=== PATIENT | female | born 1945 | race African-American/Black ===

== ENCOUNTER 2016-04-28 21:52 | Emergency (ER) | payer MEDICARE, MEDICAID ==
--- NOTE | 2016-04-28 23:35 | ER Document Report ---
ED Medical Screen (RME) - General Stated Complaint: BLOOD IN STOOL Time seen by provider: 23:31 Mode of Arrival: Ambulatory Information source: Patient Notes: 70-year-old female presents to ED for bodyaches cold and blood in her stool around noon today. Complains of abdominal pain across the lower abdomen. Pulse 101 blood pressure 144/77. Lungs clear abdomen soft, bowel sounds active. States she's been having a cough and cold so her niece brought her brought some Mucinex which upset her stomach. Denies nausea or vomiting today. Denies any gastrointestinal history except for a umbilical hernia repair. I have greeted and performed a rapid initial assessment of this patient. A comprehensive ED assessment and evaluation of the patient, analysis of test results and completion of medical decision making process will be conducted by an additional ED providers. - Related Data Allergies/Adverse Reactions: No Known Allergies Allergy (Unverified 02/27/13 12:39) Past Medical History - Past Medical History Cardiac Medical History: Reports: Hx Hypertension - Immunizations Hx Diphtheria, Pertussis, Tetanus Vaccination: Yes Physical Exam - Vital signs Vitals: Temp Pulse Resp BP Pulse Ox 98.2 F 105 H 16 144/77 H 97 04/28/16 22:38 04/28/16 22:38 04/28/16 22:38 04/28/16 22:38 04/28/16 22:38 Course - Vital Signs Vital signs: Temp Pulse Resp BP Pulse Ox 98.2 F 105 H 16 144/77 H 97 04/28/16 22:38 04/28/16 22:38 04/28/16 22:38 04/28/16 22:38 04/28/16 22:38
[2016-04-28] MEDS ORDERED: FAMOTIDINE 20 MG TABLET PO ONE (23:36)
[2016-04-29 00:41] LABS: ABSOLUTE LYMPHOCYTES (AUTO) 1.6 10^3/uL (0.5-4.7); ABSOLUTE MONOCYTES (AUTO) 0.5 10^3/uL (0.1-1.4); ABSOLUTE NEUT (AUTO) 3.1 10^3/uL (1.7-8.2); APPEARANCE,URINE CLOUDY; BASOPHILS % (AUTO) 0.3 % (0-2); BILIRUBIN,URINE NEGATIVE (NEGATIVE); EOSINOPHILS % (AUTO) 0.2 % (0-6); GLUCOSE, URINE NEGATIVE (NEGATIVE); HEMATOCRIT 39.3 % (36.0-47.0); HEMOGLOBIN 13.4 g/dL (12.0-15.5); HGB HCT DIFFERENCE 0.9; KETONES,URINE NEGATIVE (NEGATIVE); LEUKOCYTE ESTERASE,URINE LARGE (NEGATIVE); LYMPHOCYTES % (AUTO) 30.6 % (13-45); MEAN CORPUSCULAR HEMOGLOBIN 28.8 pg (27.0-33.4); MEAN CORPUSCULAR HGB CONC 34.2 g/dL (32.0-36.0); MEAN CORPUSCULAR VOLUME 84 fl (80-97); MONOCYTES % (AUTO) 10.2 % (3-13); NITRITE,URINE NEGATIVE (NEGATIVE); PROTEIN,URINE NEGATIVE (NEGATIVE); RED BLOOD COUNT 4.66 10^6/uL (3.72-5.28); RED CELL DISTRIBUTION WIDTH 13.8 % (11.5-14.0); SEGMENTED NEUTROPHILS % (AUTO) 58.7 % (42-78); URINE SPECIFIC GRAVITY 1.015; UROBILINOGEN,URINE NEGATIVE mg/dL (<2.0); WHITE BLOOD COUNT 5.2 10^3/uL (4.0-10.5)
[2016-04-29 00:43] LABS: ALANINE AMINOTRANSFERASE 22 U/L (9-52); ALBUMIN 4.3 g/dL (3.5-5.0); ALKALINE PHOSPHATASE 79 U/L (38-126); ANION GAP 14 (5-19); ASPARTATE AMINO TRANSFERASE 34 U/L (14-36); BILIRUBIN,TOTAL 0.6 mg/dL (0.2-1.3); BLOOD UREA NITROGEN 12 mg/dL (7-20); CALCIUM 9.5 mg/dL (8.4-10.2); CARBON DIOXIDE 21 mmol/L (22-30); CHLORIDE 104 mmol/L (98-107); CREATININE RESULT 0.96 mg/dL (0.52-1.25); GLUCOSE 156 mg/dL (75-110); LIPASE 100.8 U/L (23-300); POTASSIUM 4.7 mmol/L (3.6-5.0); SODIUM 139.2 mmol/L (137-145)
--- NOTE | 2016-04-29 06:11 | ER Document Report ---
ED General - General Mode of Arrival: Ambulatory Information source: Patient TRAVEL OUTSIDE OF THE [place] IN LAST 30 DAYS: No - HPI Patient complains to provider of: Blood in Stool Onset: Yesterday Onset/Duration: Sudden, Persistent Similar symptoms previously: Yes Recently seen / treated by doctor: No <ANN GUILLEN - Last Filed: 04/29/16 06:33> <SARA MERCEDES - Last Filed: 04/29/16 07:05> - General Chief Complaint: Bloody Stools Stated Complaint: BLOOD IN STOOL Notes: Patient is a 70-year-old female presenting to the emergency department concerned of blood in her stool 3 times yesterday. 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 Patient states she has had this in the past, but she does not know what it was because it resolved on its own. Patient admits to abdominal pain and dizziness. Patient states that she has not been able to give a stool sample because she took some Mucinex that upset her stomach last night and "cleared her out." (ANN GUILLEN) - Related Data Allergies/Adverse Reactions: No Known Allergies Allergy (Verified 04/28/16 23:31) Past Medical History - General Information source: Patient - Social History Smoking Status: Current Every Day Smoker Chew tobacco use (# tins/day): No Frequency of alcohol use: None Drug Abuse: None Family History: Reviewed & Not Pertinent Patient has suicidal ideation: No Patient has homicidal ideation: No - Past Medical History Cardiac Medical History: Reports: Hx Hypertension Renal/ Medical History: Denies: Hx Peritoneal Dialysis - Immunizations Hx Diphtheria, Pertussis, Tetanus Vaccination: Yes <ANN GUILLEN - Last Filed: 04/29/16 06:33> Review of Systems - Review of Systems Constitutional: No symptoms reported EENT: No symptoms reported Cardiovascular: See HPI, Dizziness Respiratory: No symptoms reported Gastrointestinal: See HPI, Abdominal pain, Blood streaked bowels, Rectal bleeding Genitourinary: No symptoms reported Female Genitourinary: No symptoms reported Musculoskeletal: No symptoms reported Skin: No symptoms reported Hematologic/Lymphatic: No symptoms reported Neurological/Psychological: No symptoms reported -: Yes All other systems reviewed and negative <ANN GUILLEN - Last Filed: 04/29/16 06:33> Physical Exam - General General appearance: Appears well, Alert In distress: None - HEENT Head: Normocephalic, Atraumatic Eyes: Normal Pupils: PERRL - Respiratory Respiratory status: No respiratory distress Chest status: Nontender Breath sounds: Rhonchi - with cough Chest palpation: Normal - Cardiovascular Rhythm: Regular Heart sounds: Normal auscultation Murmur: No - Abdominal Inspection: Obese - Soft Distension: No distension Bowel sounds: Normal Tenderness: Nontender Organomegaly: No organomegaly - Rectal Tenderness: No Stool: See lab result - light brown in color Hemorrhoids: External - No active bleeding - Back Back: Normal, Nontender - Extremities General upper extremity: Normal inspection, Nontender, Normal color, Normal ROM , Normal temperature General lower extremity: Normal inspection, Nontender, Normal color, Normal ROM , Normal temperature, Normal weight bearing - Neurological Neuro grossly intact: Yes Cognition: Normal Kinta Coma Scale Eye Opening: Spontaneous [place] Coma Scale Verbal: Oriented [place] Coma Scale Motor: Obeys Commands Kinta Coma Scale Total: 15 Speech: Normal - Psychological Associated symptoms: Normal affect, Normal mood - Skin Skin Temperature: Warm Skin Moisture: Dry Skin Color: Normal <ANN GUILLEN - Last Filed: 04/29/16 06:33> Course - Laboratory Result Diagrams: 04/29/16 00:01 04/29/16 00:01 <ANN GUILLEN - Last Filed: 04/29/16 06:33> - Laboratory Result Diagrams: 04/29/16 00:01 04/29/16 00:01 <SARA MERCEDES - Last Filed: 04/29/16 07:05> - Re-evaluation Re-evalutation: 04/29/16 07:05 The stool is heme-negative. (SARA MERCEDES) - Vital Signs Vital signs: Temp Pulse Resp BP Pulse Ox 98.2 F 98 16 149/79 H 95 04/29/16 03:55 04/29/16 03:55 04/29/16 03:55 04/29/16 03:55 04/29/16 03:55 (ANN GUILLEN) (SARA MERCEDES) - Laboratory Laboratory results interpreted by me: 04/29/16 04/29/16 00:01 00:01 Carbon Dioxide 21 L Est GFR (Non-Af Amer) 58 L Glucose 156 H Urine Blood MODERATE H Ur Leukocyte Esterase LARGE H (ANN GUILLEN) (SARA MERCEDES) Discharge <ANN GUILLEN - Last Filed: 04/29/16 06:33> <SARA MERCEDES - Last Filed: 04/29/16 07:05> - Discharge Clinical Impression: External hemorrhoids High blood pressure Qualifiers: Hypertension type: essential hypertension Qualified Code(s): I10 - Essential ( primary) hypertension Condition: Stable Disposition: HOME, SELF-CARE Additional Instructions: There was no blood in your stool on chemical exam of the stool. You do have some additional hemorrhoids which may have been the source of the blood use all. Your blood pressure slightly elevated. Your are advised to follow-up with a local medical doctor for regular health care and monitoring. You should start treating your elevated blood pressure. RETURN TO THE EMERGENCY ROOM IF ANY NEW OR WORSENING SYMPTOMS. Scribe Attestation: 04/29/16 07:05 I personally performed the services described in the documentation, reviewed and edited the documentation which was dictated to the scribe in my presence, and it accurately records my words and actions. (SARA MERCEDES) Scribe Documentation - Scribe Written by Scribnakul:: Ann Guillen 04/29/2016 0610 acting as scribe for :: Matt <ANN GUILLEN - Last Filed: 04/29/16 06:33>
[2016-04-29 07:18] VITALS: BP 129/63
== END 2016-04-29 07:18 | disposition home or self-care (01) ==
LOC: ER 21:52
DX: K64.4 Residual hemorrhoidal skin tags (principal); I10 Essential (primary) hypertension; R19.5 Other fecal abnormalities; R10.9 Unspecified abdominal pain; R42 Dizziness and giddiness
CPT/HCPCS: 99283; 36415; 83690; 85025; 82272; 80053; 81001; A9270

== ENCOUNTER 2019-08-29 13:10 | Inpatient (IN) | payer MEDICAID, MEDICARE ==
--- NOTE | 2019-08-29 13:31 | ER Document Report ---
ED Medical Screen (RME) - General Chief Complaint: Numbness of Face Stated Complaint: FACIAL NUMBNESS Time Seen by Provider: 08/29/19 13:25 Mode of Arrival: Ambulatory Information source: Patient Notes: HPI; 73-year-old female presents to the emergency room complaining of a sore throat with right-sided facial numbness for the past 2 days. States she feels off balance when she walks. No head trauma or head injury. States "I feel like he cannot swallow on the right side of my throat" PE: Alert and oriented x3. Mild distress noted. Decreased sensation to painful stimuli on the right. 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 Mild right-sided facial droop is noted. Mild right tongue deviation to the right. Able to do full assessment in triage. I have greeted and performed a rapid initial assessment of this patient. A comprehensive ED assessment and evaluation of the patient, analysis of test results and completion of the medical decision making process will be conducted by additional ED providers. I have specifically instructed the patient or family members with the patient to immediately return to any nursing staff should anything change in the patient's condition or with their chief complaint. TRAVEL OUTSIDE OF THE [place] IN LAST 30 DAYS: No - Related Data Allergies/Adverse Reactions: No Known Allergies Allergy (Verified 08/29/19 13:25) Past Medical History - Past Medical History Cardiac Medical History: Reports: Hx Hypertension Renal/ Medical History: Denies: Hx Peritoneal Dialysis - Immunizations Hx Diphtheria, Pertussis, Tetanus Vaccination: Yes Physical Exam - Vital signs Vitals: Temp Pulse Resp BP Pulse Ox 98.9 F 100 16 172/89 H 100 08/29/19 13:17 08/29/19 13:17 08/29/19 13:17 08/29/19 13:17 08/29/19 13:17 Course - Vital Signs Vital signs: Temp Pulse Resp BP Pulse Ox 98.9 F 100 16 172/89 H 100 08/29/19 13:17 08/29/19 13:17 08/29/19 13:17 08/29/19 13:17 08/29/19 13:17
[2019-08-29 14:24] LABS: ABSOLUTE EOSINOPHILS # (AUTO) 0.2 10^3/uL (0.0-0.6); ABSOLUTE LYMPHOCYTES (AUTO) 2.9 10^3/uL (0.5-4.7); ABSOLUTE MONOCYTES (AUTO) 0.5 10^3/uL (0.1-1.4); ABSOLUTE NEUT (AUTO) 2.2 10^3/uL (1.7-8.2); BASOPHILS % (AUTO) 0.8 % (0-2); EOSINOPHILS % (AUTO) 3.3 % (0-6); HEMATOCRIT 36.6 % (36.0-47.0); HEMOGLOBIN 12.6 g/dL (12.0-15.5); MEAN CORPUSCULAR HEMOGLOBIN 30.1 pg (27.0-33.4); MEAN CORPUSCULAR HGB CONC 34.3 g/dL (32.0-36.0); MEAN CORPUSCULAR VOLUME 88 fl (80-97); PLATELET COUNT 217 10^3/uL (150-450); RED BLOOD COUNT 4.17 10^6/uL (3.72-5.28); SEGMENTED NEUTROPHILS % (AUTO) 37.9 % (42-78); TOTAL CELLS COUNTED % (AUTO) 100 %; WHITE BLOOD COUNT 5.8 10^3/uL (4.0-10.5)
[2019-08-29 14:26] LABS: INTERNATIONAL RATION (INR) 1.06; PROTHROMBIN TIME 13.8 SEC (11.4-15.4)
--- NOTE | 2019-08-29 14:27 | RADIOLOGY REPORT (SQ) ---
EXAM DESCRIPTION: CT HEAD WITHOUT IMAGES COMPLETED DATE/TIME: 08/29/2019 2:09 pm REASON FOR STUDY: Paresthesia COMPARISON: 02/27/2013 TECHNIQUE: Axial images acquired through the brain without intravenous contrast. Images reviewed wi th bone, brain and subdural windows. Additional sagittal and coronal reconstructions were generated. Images stored on PACS. All CT scanners at this facility use dose modulation, iterative reconstruction, and/or weight based d osing when appropriate to reduce radiation dose to as low as reasonably achievable (ALARA). [facility]: Dose Right [facility]: CareDose [facility]: Dose Right [facility]: Teradose 4D [facility]: Smart [place] [employer] RADIATION DOSE: CT Rad equipment meets quality standard of care and radiation dose reduction techniq ues were employed. CTDIvol: 53.2 mGy. DLP: 937 mGy-cm. mGy. LIMITATIONS: None. FINDINGS: VENTRICLES: Normal size and contour. CEREBRUM: No masses. No hemorrhage. No midline shift. No evidence for acute infarction. Normal gra y/white matter differentiation. No areas of low density in the white matter. Incidental note is made of bilateral basal ganglia calcifications. CEREBELLUM: No masses. No hemorrhage. Wedge-shaped hypoattenuation involving the right cerebellar l obe suggests subacute or chronic ischemic injury. EXTRAAXIAL SPACES: No fluid collections. No masses. ORBITS AND GLOBE: No intra- or extraconal masses. Normal contour of globe without masses. CALVARIUM: No fracture. PARANASAL SINUSES: Trace fluid is seen within the left maxillary and right sphenoid compartment. SOFT TISSUES: No mass or hematoma. OTHER: No other significant finding. IMPRESSION: The posterior fossa is poorly characterized on noncontrast head CT due to beam hardening artifact of the adjacent skullbase. There is a wedge-shaped area of hypoattenuation within the righ t cerebellar hemisphere which likely represents a subacute or chronic ischemic injury. If high clini bobbi suspicion for subacute injury, this may be confirmed with noncontrast enhanced magnetic resonance imaging of the brain. EVIDENCE OF ACUTE STROKE: NO. COMMENT: Quality ID # [id number]: Final reports with documentation of one or more dose reduction techniques (e.g., Automated exposure control, adjustment of the mA and/or kV according to patient size, use of iterative reconstruction technique) TECHNICAL DOCUMENTATION: JOB ID: [id number] 2010 [employer]- All Rights Reserved Reading location - IP/workstation name: [email or web address]
[2019-08-29 14:41] LABS: ALKALINE PHOSPHATASE 82 U/L (38-126); ASPARTATE AMINO TRANSFERASE 27 U/L (14-36); BILIRUBIN,TOTAL 0.6 mg/dL (0.2-1.3); BLOOD UREA NITROGEN 12 mg/dL (7-20); CALCIUM 9.5 mg/dL (8.4-10.2); CARBON DIOXIDE 30 mmol/L (22-30); CHLORIDE 105 mmol/L (98-107); GLUCOSE 95 mg/dL (75-110); POTASSIUM 4.7 mmol/L (3.6-5.0); TOTAL PROTEIN 7.8 g/dL (6.3-8.2)
[2019-08-29 14:48] LABS: ANION GAP 5 (5-19)
--- NOTE | 2019-08-29 15:18 | EKG REPORT ---
SEVERITY:- ABNORMAL ECG - SINUS RHYTHM ABNORMAL T, PROBABLE ISCHEMIA, WIDESPREAD : Confirmed by: Roberto Lynn MD 29-Aug-2019 15:18:03
--- NOTE | 2019-08-29 15:52 | ER Document Report ---
ED Neuro Symptoms/Deficit - General Chief Complaint: Numbness of Face Stated Complaint: FACIAL NUMBNESS Time Seen by Provider: 08/29/19 13:25 Mode of Arrival: Ambulatory Notes: 73-year-old woman presents to the emergency department with a complaint of right facial numbness and imbalance with some difficulty swallowing. Symptoms began last Friday, they continued and have not improved she presents to the emergency department for evaluation. Has a history of diabetes, she is not being treated for hypertension and does not see a physician on a regular basis. TRAVEL OUTSIDE OF THE [place] IN LAST 30 DAYS: No - Related Data Allergies/Adverse Reactions: No Known Allergies Allergy (Verified 08/29/19 13:25) Past Medical History - General Information source: Patient - Social History Smoking Status: Current Every Day Smoker Chew tobacco use (# tins/day): No Frequency of alcohol use: None Drug Abuse: None Family History: Reviewed & Not Pertinent Patient has homicidal ideation: No - Past Medical History Cardiac Medical History: Reports: Hx Hypertension Renal/ Medical History: Denies: Hx Peritoneal Dialysis - Immunizations Hx Diphtheria, Pertussis, Tetanus Vaccination: Yes Review of Systems - Review of Systems Notes: Constitutional: Negative for fever. HENT: + Swallowing difficulty Eyes: Negative for visual changes. Cardiovascular: Negative for chest pain. Respiratory: Negative for shortness of breath. Gastrointestinal: Negative for abdominal pain, vomiting or diarrhea. Genitourinary: Negative for dysuria. Musculoskeletal: Negative for back pain. Skin: Negative for rash. Neurological: See HPI. 10 point ROS negative except as marked above and in HPI. Physical Exam - Vital signs Vitals: Temp Pulse Resp BP Pulse Ox 98.9 F 100 16 172/89 H 100 08/29/19 13:17 08/29/19 13:17 08/29/19 13:17 08/29/19 13:17 08/29/19 13:17 - Notes Notes: PHYSICAL EXAMINATION: Physical Exam: General: Well-nourished well-developed 73-year-old woman in no acute distress HEENT: NC/AT, pupils equal round and reactive to light, MM moist,nares clear, oropharynx clear, airway patent Neck: supple, no adenopathy, no masses. Good range of motion Lungs: clear, no wheezing, no rales no rhonchi CVS: Regular rate and rhythm no murmur gallop or rub Abdomen: Soft, active, nontender, no masses, no hepatosplenomegaly Ext: No edema, clubbing or cyanosis. Neuro: Alert and responsive, + right facial numbness, tongue midline, midline lip of the uvula on oral exam, upper and lower extremity motor function normal, no sensory deficits in the extremities. Cerebellar testing poor [id number] right side, Skin: Intact no open lesions, no rash PSYCH: Normal mood, normal affect. Course - Re-evaluation Re-evalutation: 08/29/19 15:52 Patient with new onset subacute cerebellar infarct and symptoms supportive of the diagnosis of a subacute stroke. Blood pressure is elevated, I discussed the findings with the patient and also explained that she would need to come into the hospital for further evaluation of stroke risk and management of hypertension. Patient is agreeing to that plan. 08/29/19 15:59 Patient is not a candidate for TPA, her symptoms began 1 week ago, NIH scale approximately 3 -4 + facial numbness, + swallowing difficulty, + cerebellar abnormality. - Vital Signs Vital signs: Temp Pulse Resp BP Pulse Ox 98.9 F 100 17 133/120 H 98 08/29/19 13:25 08/29/19 13:17 08/29/19 15:01 08/29/19 15:01 08/29/19 15:01 - Laboratory Result Diagrams: 08/29/19 14:12 08/29/19 14:12 Laboratory results interpreted by me: 08/29/19 14:12 Lymph % (Auto) 49.0 H Seg Neutrophils % 37.9 L - Diagnostic Test Radiology reviewed: Image reviewed, Reports reviewed Radiology results interpreted by or: 08/29/19 16:02 CT head: Abnormality in the posterior fossa wedge-shaped area in the right cerebellum suggestive of a subacute area of injury. Discharge - Discharge Clinical Impression: Cerebellar infarct Hypertension Qualifiers: Hypertension type: unspecified Qualified Code(s): I10 - Essential (primary) hypertension Condition: Good Disposition: ADMITTED INPATIENT Admitting Provider: Onur (Hospitalist) Unit Admitted: [facility]
--- NOTE | 2019-08-29 16:25 | RADIOLOGY REPORT (SQ) ---
EXAM DESCRIPTION: CHEST SINGLE VIEW IMAGES COMPLETED DATE/TIME: 08/29/2019 4:15 pm REASON FOR STUDY: Stroke COMPARISON: 02/27/2013 TECHNIQUE: Single frontal radiographic view of the chest acquired. NUMBER OF VIEWS: One view. LIMITATIONS: None. FINDINGS: LUNGS AND PLEURA: No pneumothorax. No consolidation or pleural effusion. MEDIASTINUM AND HILAR STRUCTURES: Stable. HEART AND VASCULAR STRUCTURES: Stable. BONES: No acute findings. HARDWARE: None in the chest. OTHER: No other significant finding. IMPRESSION: NO ACUTE FINDINGS. TECHNICAL DOCUMENTATION: JOB ID: [id number] [place]-[id number] 2010 [employer]- All Rights Reserved Reading location - IP/workstation name: [email or web address]
[2019-08-29] MEDS ORDERED: METOPROLOL TARTRATE PF/INJ 5 MG/5 ML SDV IV PRN (16:33)
[2019-08-29] MEDS ORDERED: HYDRALAZINE HCL INJ/PF 20 MG/1 ML SDV IV PRN (16:33)
[2019-08-29] MEDS ORDERED: TEMAZEPAM 7.5 MG CAPSULE PO PRN (16:34)
[2019-08-29] MEDS ORDERED: IPRATROPIUM/ALBUTEROL 0.5-2.5 MG/3 ML AMPUL NEB PRN (16:34)
[2019-08-29] MEDS ORDERED: PROMETHAZINE HCL INJ 25 MG/1 ML VIAL IV PRN (16:34)
[2019-08-29] MEDS ORDERED: ACETAMINOPHEN 325 MG TABLET PO PRN (16:34)
[2019-08-29] MEDS ORDERED: OXYCODONE-ACETAMINOPHEN 5-325 MG TABLET PO PRN (16:34)
[2019-08-29] MEDS ORDERED: ONDANSETRON HCL INJ/PF 4 MG/2 ML SDV IV PRN (16:34)
[2019-08-29] MEDS ORDERED: MAGNESIUM HYDROXIDE SUSP 30 ML UDCUP PO PRN (16:34)
[2019-08-29] MEDS ORDERED: ENALAPRIL MALEATE 10 MG TABLET PO SCH (16:45)
[2019-08-29] MEDS: NICOTINE 14 MG/24 HR PATCH.TD24 TD SCH (16:52)
[2019-08-29 16:53] LABS: CHOLESTEROL 252.19 mg/dL (0-200); TRIGLYCERIDES 127 mg/dL (<150)
--- NOTE | 2019-08-29 16:54 | PDOC H&P ---
History of Present Illness History of Present Illness: KHADIJAH WASHINGTON is a 73 year old female with no significant past medical history is sent for tobacco abuse, untreated diabetes and hypertension presenting to ED complaining of sudden onset right facial numbness, mild dysphagia and loss of balance which all started last Friday, patient did not seek any immediate medical treatment as she thought it would go away, however her symptoms are intermittent and has persistent to present time. Patient denies any headache, vision changes, taste changes, chest pain, palpitation, lightheadedness, shortness of breath, nausea, vomiting, weight c hanges, diarrhea, constipation and urinary symptoms. Patient is stating that when she walks intermittently she loses balance and and feels like she is going to fall to the right side however she has not had a fall or any head trauma since the symptoms began. In the ED she was found to be hypertensive and a CT head was shown to be possible subacute nonhemorrhagic stroke in the right cerebellum. Past Medical History Cardiac Medical History: Reports: Hypertension Social History Smoking Status: Current Every Day Smoker Electronic Cigarette use?: No Family History Family History: Reviewed & Not Pertinent Parental Family History Reviewed: Yes Children Family History Reviewed: Yes Sibling(s) Family History Reviewed.: Yes Medication/Allergy Home Medications: Aspirin [Adult Low Dose Aspirin EC] 81 mg PO DAILY 30 Days #30 tablet. 08/30/19 Atorvastatin Calcium [Lipitor 40 mg Tablet] 40 mg PO QHS 30 Days #30 tablet 08/30/19 Enalapril Maleate 20 mg PO DAILY 30 Days #30 tablet 08/30/19 Metformin HCl 500 mg PO BID 30 Days #60 tablet 08/30/19 Allergies/Adverse Reactions: No Known Allergies Allergy (Verified 08/29/19 13:25) Review of Systems Review of Systems: as per hpi Physical Exam Vital Signs: Temp Pulse Resp BP Pulse Ox 98.9 F 80 18 172/89 H 100 08/29/19 13:25 08/29/19 15:30 08/29/19 15:30 08/29/19 15:30 08/29/19 15:30 Intake & Output 08/28/19 08/29/19 08/30/19 06:59 06:59 06:59 Weight 72.575 kg General appearance: PRESENT: no acute distress, well-developed, well-nourished Head exam: PRESENT: atraumatic, normocephalic Respiratory exam: PRESENT: clear to auscultation estella. ABSENT: rales, rhonchi, wheezes Cardiovascular exam: PRESENT: RRR. ABSENT: diastolic murmur, rubs, systolic murmur Pulses: PRESENT: normal dorsalis pedis pul GI/Abdominal exam: PRESENT: normal bowel sounds, soft. ABSENT: distended, guarding, mass, organolmegaly, rebound, tenderness Extremities exam: PRESENT: full ROM. ABSENT: calf tenderness, clubbing, pedal edema Neurological exam: PRESENT: alert, awake, oriented to person, oriented to place, oriented to time, oriented to situation, reflexes normal, CN II-XII grossly intact - Right facial numbness.. ABSENT: motor sensory deficit Results Laboratory Results: 08/29/19 14:12 08/29/19 14:12 08/29/19 08/29/19 14:12 14:12 WBC 5.8 RBC 4.17 Hgb 12.6 Hct 36.6 MCV 88 MCH 30.1 MCHC 34.3 RDW 14.0 Plt Count 217 Seg Neutrophils % 37.9 L Sodium 139.6 Potassium 4.7 Chloride 105 Carbon Dioxide 30 Anion Gap 5 BUN 12 Creatinine 0.81 Est GFR ( Amer) > 60 Glucose 95 Calcium 9.5 Total Bilirubin 0.6 AST 27 Alkaline Phosphatase 82 Total Protein 7.8 Albumin 4.0 08/29/19 14:12 Troponin I < 0.012 Impressions: Head CT 08/29/19 13:28 IMPRESSION: The posterior fossa is poorly characterized on noncontrast head CT due to beam hardening artifact of the adjacent skullbase. There is a wedge-shaped area of hypoattenuation within the right cerebellar hemisphere which likely represents a subacute or chronic ischemic injury. If high clinical suspicion for subacute injury, this may be confirmed with noncontrast enhanced magnetic resonance imaging of the brain. EVIDENCE OF ACUTE STROKE: NO. Chest X-Ray 08/29/19 16:05 IMPRESSION: NO ACUTE FINDINGS. 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 Most likely due to uncontrolled hypertension. Patient presenting with right facial numbness, mild dysphasia and loss of balance. Admit to IMCU, telemetry, antiplatelets, high intensity statins, optimize BP, neurochecks, brain MRI, cardiac Doppler. Will order lipid panel, TSH, hemoglobin A1c. PT OT ST. (2) Hypertensive urgency Is this a current diagnosis for this admission?: Yes Plan: History of uncontrolled hypertension. Presenting with BP of 170s. Start low-dose enalapril, IV as needed hydralazine, adjust meds as needed with a goal of BP in 130s within the next 24 to 48 hours. (3) Hyperlipidemia Is this a current diagnosis for this admission?: Yes Plan: ASCVD score of 61%. We will start on high intensity statin. Diet and lifestyle modification recommended. TSH WNL. Outpatient PCP follow-up. Monitor LFTs. (4) Diabetes Qualifiers: Diabetes mellitus type: type 2 Is this a current diagnosis for this admission?: Yes Plan: History of untreated diabetes. Hemoglobin A1c 6.7. Diabetic diet. Basal, sliding scale and prandial insulin. Hypoglycemic protocol. Accu-Cheks. Patient is a good candidate for oral hypoglycemics. (5) Hypertension Qualifiers: Hypertension type: unspecified Qualified Code(s): I10 - Essential (primary) hypertension Is this a current diagnosis for this admission?: Yes
[2019-08-29] MEDS: ASPIRIN 81 MG TABLET, CHEWABLE PO SCH (16:55)
[2019-08-29 17:03] LABS: DIRECT LDL 143 mg/dL (<100)
--- NOTE | 2019-08-29 17:41 | RADIOLOGY REPORT (SQ) ---
EXAM DESCRIPTION: MRI HEAD WITHOUT IMAGES COMPLETED DATE/TIME: 08/29/2019 5:26 pm REASON FOR STUDY: Rt facial numbness, abnormal CT head COMPARISON: Earlier head CT TECHNIQUE: Multiplanar imaging includes non-contrasted T1, T2, FLAIR, and Diffusion with ADC map seq uences. Images stored on PACS. LIMITATIONS: None. FINDINGS: ANATOMY: No anomalies. Normal vascular flow voids. Pituitary fossa normal. CSF SPACES: Normal in size and contour. No hemorrhage. CEREBRUM: Scattered high-signal intensity lesions scattered throughout the white matter on FLAIR imag ing with distribution suggesting chronic micro-vascular ischemic change. Sulci and gyri normal in si ze and contour. No evidence of hemorrhage, mass or extraaxial fluid collection. POSTERIOR FOSSA: Positive for acute or sub-acute infarction in the right inferior cerebellum in the a n area measuring approximately 3.5 cm in greatest dimension. Internal auditory canals, cerebello-po ntine angles, mastoids normal. DIFFUSION: Positive for acute or sub-acute infarction in the right inferior cerebellum in an area gracie suring approximately 3.5 cm in greatest dimension. . ORBITS: No masses. Globes normal. PARANASAL SINUSES: No fluid levels. Mucosa normal. OTHER: No other significant finding. IMPRESSION: Positive for acute or sub-acute infarction in the right inferior cerebellum in an area m easuring approximately 3.5 cm in greatest dimension. EVIDENCE OF ACUTE STROKE: YES. RIGHT VERTEBROBASILAR. COMMENT: The findings were sent to the Radiology Results Communication Center at 17:34 on 08/29/2019 to be communicated to a licensed caregiver. TECHNICAL DOCUMENTATION: JOB ID: [id number] 2010 [employer]- All Rights Reserved Reading location - IP/workstation name: [email or web address]
[2019-08-29] MEDS ORDERED: DEXTROSE 50%-WATER 25 GM/50 ML DISP.SYRIN IV PRN ×2 (17:55)
[2019-08-29] MEDS ORDERED: DEXTROSE 40% GEL 15 GM TUBE PO PRN ×2 (17:55)
[2019-08-29] MEDS ORDERED: GLUCAGON,HUMAN RECOMB 1 MG INJ IM PRN (17:55)
[2019-08-29] MEDS ORDERED: ATORVASTATIN CALCIUM 40 MG TABLET PO SCH (22:00)
[2019-08-29] MEDS ORDERED: INSULIN GLARGINE,HUM.REC.ANLOG 1,000 UNIT/10 ML VIAL SUBCUT SCH (22:00)
[2019-08-29] MEDS: HEPARIN SOD (PORCINE) 5,000 UNIT/ML 1 ML VIAL SUBCUT SCH (22:20)
[2019-08-29] MEDS: INSULIN LISPRO 100 UNIT/ML 3 ML VIAL SUBCUT SCH (22:20)
[2019-08-29] MEDS: FAMOTIDINE 20 MG TABLET PO SCH (22:21)
[2019-08-29] MEDS ORDERED: PHENOL/SODIUM PHENOLATE 100 SPRAY/177 ML BOTTLE PO PRN (23:05)
[2019-08-30] MEDS: HEPARIN SOD (PORCINE) 5,000 UNIT/ML 1 ML VIAL SUBCUT SCH ×2 (05:08→13:06)
[2019-08-30] MEDS: INSULIN LISPRO 100 UNIT/ML 3 ML VIAL SUBCUT SCH (09:06)
[2019-08-30] MEDS ORDERED: ENALAPRIL MALEATE 10 MG TABLET PO SCH (10:00)
[2019-08-30] MEDS ORDERED: DOCUSATE SODIUM 100 MG CAPSULE PO SCH (10:00)
[2019-08-30] MEDS: FAMOTIDINE 20 MG TABLET PO SCH (10:44)
[2019-08-30] MEDS: NICOTINE 14 MG/24 HR PATCH.TD24 TD SCH (10:44)
[2019-08-30] MEDS: ASPIRIN 81 MG TABLET, CHEWABLE PO SCH (10:44)
--- NOTE | 2019-08-30 12:56 | RADIOLOGY REPORT (SQ) ---
EXAM DESCRIPTION: CAROTID DOPPLER IMAGES COMPLETED DATE/TIME: 08/30/2019 12:14 pm REASON FOR STUDY: Rt facial numbness, dysphagia COMPARISON: None. TECHNIQUE: Grayscale ultrasound, Doppler velocity and spectra, and color Doppler images acquired of the extra-cranial carotid and vertebral arteries. Images stored on PACS. LIMITATIONS: None. FINDINGS: RIGHT CAROTID CCA Velocities: Within normal limits. ICA Velocities Peak systolic 76 cm/s. End diastolic 26 cm/s. Proximal ICA/CCA peak systolic ratio 1.2. There is a small amount soft plaque. LEFT CAROTID CCA Velocities: Within normal limits. ICA Velocities Peak systolic 78 cm/s. End diastolic 25 cm/s. Proximal ICA/CCA peak systolic ratio 1.1. There is a small amount of soft plaque VERTEBRAL ARTERIES: Antegrade flow. Normal waveforms. SUBCLAVIAN ARTERIES: No finding. OTHER: No other significant finding. IMPRESSION: There is a small amount soft plaque. No significant stenosis is seen on either side. COMMENT: Quality ID #[id number]: Velocity criteria are extrapolated from the diameter data as defined by t he Society of Radiologists in Ultrasound Consensus Conference. Radiology 2003: 229; 340-346. TECHNICAL DOCUMENTATION: JOB ID: [id number] 2010 [employer]- All Rights Reserved Reading location - IP/workstation name: [email or web address]
[2019-08-30] MEDS ORDERED: METFORMIN HCL 500 MG TABLET PO SCH (16:00)
--- NOTE | 2019-08-30 16:48 | PDOC DISCHARGE SUMMARY ---
Impression - Admit/DC Date/PCP Admission Date/Primary Care Provider: 08/30/19 12:39 Discharge Date: 08/30/19 - Discharge Diagnosis (1) CVA (cerebral vascular accident) Is this a current diagnosis for this admission?: Yes (2) Hypertensive urgency Is this a current diagnosis for this admission?: Yes (3) Hyperlipidemia Is this a current diagnosis for this admission?: Yes (4) Diabetes Is this a current diagnosis for this admission?: Yes (5) Hypertension Is this a current diagnosis for this admission?: Yes (6) Tobacco abuse Is this a current diagnosis for this admission?: Yes - Additional Information Referrals: EMANUEL NOLASCO MD [ACTIVE STAFF] - 09/06/19 10:00 am Prescriptions: Aspirin [Adult Low Dose Aspirin EC] 81 mg PO DAILY 30 Days #30 tablet. Enalapril Maleate 20 mg PO DAILY 30 Days #30 tablet Atorvastatin Calcium [Lipitor 40 mg Tablet] 40 mg PO QHS 30 Days #30 tablet Metformin HCl 500 mg PO BID 30 Days #60 tablet Home Medications: Aspirin [Adult Low Dose Aspirin EC] 81 mg PO DAILY 30 Days #30 tablet. 08/30/19 Atorvastatin Calcium [Lipitor 40 mg Tablet] 40 mg PO QHS 30 Days #30 tablet 08/30/19 Enalapril Maleate 20 mg PO DAILY 30 Days #30 tablet 08/30/19 Metformin HCl 500 mg PO BID 30 Days #60 tablet 08/30/19 History of Present Illiness History of Present Illness: KHADIJAH WASHINGTON is a 73 year old female with no significant past medical history is sent for tobacco abuse, untreated diabetes and hypertension presenting to ED complaining of sudden onset right facial numbness, mild dysphagia and loss of balance which all started last Friday, patient did not seek any immediate medical treatment as she thought it would go away, however her symptoms are intermittent and has persistent to present time. Patient denies any headache, vision changes, taste changes, chest pain, palpitation, lightheadedness, shortness of breath, nausea, vomiting, weight changes, diarrhea, constipation and urinary symptoms. Patient is stating that when she walks intermittently she loses balance and and feels like she is going to fall to the right side however she has not had a fall or any head trauma since the symptoms began. In the ED she was found to be hypertensive and a CT head was shown to be possible subacute nonhemorrhagic stroke in the right cerebellum. Hospital Course Hospital Course: (1) CVA (cerebral vascular accident) Subacute nonhemorrhagic stroke posterior circulation. Most likely due to uncontrolled hypertension. Patient presented with right facial numbness, hx of mild dysphasia and loss of balance for one week. CT head on admission possible right cerebellar subacute stroke, which was confirmed by MRI head. Carotid Doppler no significant stenosis. EKG no acute changes. Was admitted to IMCU, telemetry, antiplatelets, high intensity statins, optimize d BP, neurochecks. TSH, lipid panel and A1c obtained. PT OT ST consulted. As per the evaluation patient did not need any further PT or OT. P.o. tolerant. Ambulatory. Having normal bowel and bladder movement. Patient was discharged home stating that she is living with her family and she has a good family support. An appointment with Dr. Nolasco was obtained for patient to follow-up. (2) Hypertensive urgency History of uncontrolled hypertension. Presenting with BP of 170s. Started on low-dose enalapril, IV as needed hydralazine, adjust meds as needed with a goal of BP in 130s within the next 24 to 48 hours. Enalapril was increased the following day BP in 130 without discharge. Was discharged on enalapril. Patient was extensively advised on medication adherence and follow-up with PCP. (3) Hyperlipidemia ASCVD score of 61%. Started on on high intensity statin. Diet and lifestyle modification recommended. TSH WNL. Outpatient PCP follow-up. Monitor LFTs. (4) Diabetes History of untreated diabetes. Hemoglobin A1c 6.7. Started on diabetic diet. Basal, sliding scale and prandial insulin. Hypoglycemic protocol. Accu-Cheks. Refused insulin. It was a started on metformin 500. P.o. twice daily. Patient was asked to follow-up with PCP for readjustment of her diabetic medications. (5) Hypertension As per #2. (6) Tobacco Abuse Extensively advised on quitting. Nicotine patch was provided. Physical Exam Vital Signs: Temp Pulse Resp BP Pulse Ox 97.9 F 75 16 133/82 H 97 08/30/19 11:14 08/30/19 14:38 08/30/19 14:38 08/30/19 11:14 08/30/19 14:38 Intake & Output 08/29/19 08/30/19 08/31/19 06:59 06:59 06:59 Intake Total 260 360 Balance 260 360 Weight 72 kg General appearance: PRESENT: no acute distress, well-developed, well-nourished Head exam: PRESENT: atraumatic, normocephalic Respiratory exam: PRESENT: clear to auscultation estella. ABSENT: rales, rhonchi, wheezes Pulses: PRESENT: normal dorsalis pedis pul Vascular exam: PRESENT: normal capillary refill GI/Abdominal exam: PRESENT: normal bowel sounds, soft. ABSENT: distended, guarding, mass, organolmegaly, rebound, tenderness Extremities exam: PRESENT: full ROM. ABSENT: calf tenderness, clubbing, pedal edema Neurological exam: PRESENT: alert, awake, oriented to person, oriented to place, oriented to time, oriented to situation, CN II-XII grossly intact. ABSENT: sarwat r sensory deficit Skin exam: PRESENT: dry, intact, warm. ABSENT: cyanosis, rash Results Laboratory Results: WBC 5.8 10^3/uL (4.0-10.5) 08/29/19 14:12 RBC 4.17 10^6/uL (3.72-5.28) 08/29/19 14:12 Hgb 12.6 g/dL (12.0-15.5) 08/29/19 14:12 Hct 36.6 % (36.0-47.0) 08/29/19 14:12 MCV 88 fl (80-97) 08/29/19 14:12 MCH 30.1 pg (27.0-33.4) 08/29/19 14:12 MCHC 34.3 g/dL (32.0-36.0) 08/29/19 14:12 RDW 14.0 % (11.5-14.0) 08/29/19 14:12 Plt Count 217 10^3/uL (150-450) 08/29/19 14:12 Lymph % (Auto) 49.0 % (13-45) H 08/29/19 14:12 [place] % (Auto) 9.0 % (3-13) 08/29/19 14:12 Eos % (Auto) 3.3 % (0-6) 08/29/19 14:12 Baso % (Auto) 0.8 % (0-2) 08/29/19 14:12 Absolute Neuts (auto) 2.2 10^3/uL (1.7-8.2) 08/29/19 14:12 Absolute Lymphs (auto) 2.9 10^3/uL (0.5-4.7) 08/29/19 14:12 Absolute Monos (auto) 0.5 10^3/uL (0.1-1.4) 08/29/19 14:12 Absolute Eos (auto) 0.2 10^3/uL (0.0-0.6) 08/29/19 14:12 Absolute Basos (auto) 0.0 10^3/uL (0.0-0.2) 08/29/19 14:12 Seg Neutrophils % 37.9 % (42-78) L 08/29/19 14:12 PT 13.8 SEC (11.4-15.4) 08/29/19 14:12 INR 1.06 08/29/19 14:12 Sodium 139.6 mmol/L (137-145) 08/29/19 14:12 Potassium 4.7 mmol/L (3.6-5.0) 08/29/19 14:12 Chloride 105 mmol/L (98-107) 08/29/19 14:12 Carbon Dioxide 30 mmol/L (22-30) 08/29/19 14:12 Anion Gap 5 (5-19) 08/29/19 14:12 BUN 12 mg/dL (7-20) 08/29/19 14:12 Creatinine 0.81 mg/dL (0.52-1.25) 08/29/19 14:12 Est GFR ( Amer) > 60 (>60) 08/29/19 14:12 Est GFR (MDRD) Non-Af > 60 (>60) 08/29/19 14:12 Glucose 95 mg/dL (75-110) 08/29/19 14:12 POC Glucose 95 mg/dL (70-110) 08/30/19 11:15 Hemoglobin A1c % 6.7 % (4.7-6.0) H 08/29/19 14:12 Calcium 9.5 mg/dL (8.4-10.2) 08/29/19 14:12 Total Bilirubin 0.6 mg/dL (0.2-1.3) 08/29/19 14:12 Direct Bilirubin 0.0 mg/dL (0.0-0.4) 08/29/19 14:12 Neonat Total Bilirubin Not Reportable 08/29/19 14:12 Neonat Direct Bilirubin Not Reportable 08/29/19 14:12 Neonat Indirect Bili Not Reportable 08/29/19 14:12 AST 27 U/L (14-36) 08/29/19 14:12 ALT 11 U/L (<35) 08/29/19 14:12 Alkaline Phosphatase 82 U/L (38-126) 08/29/19 14:12 Troponin I < 0.012 ng/mL 08/29/19 14:12 Total Protein 7.8 g/dL (6.3-8.2) 08/29/19 14:12 Albumin 4.0 g/dL (3.5-5.0) 08/29/19 14:12 Triglycerides 127 mg/dL (<150) 08/29/19 14:12 Cholesterol 252.19 mg/dL (0-200) H 08/29/19 14:12 LDL Cholesterol Direct 143 mg/dL (<100) H 08/29/19 14:12 VLDL Cholesterol 25.0 mg/dL (10-31) 08/29/19 14:12 HDL Cholesterol 60 mg/dL (>40) 08/29/19 14:12 TSH 2.20 uIU/mL (0.47-4.68) 08/29/19 14:12 08/29/19 14:12 Troponin I < 0.012 Impressions: Head CT 08/29/19 13:28 IMPRESSION: The posterior fossa is poorly characterized on noncontrast head CT due to beam hardening artifact of the adjacent skullbase. There is a wedge- shaped area of hypoattenuation within the right cerebellar hemisphere which likely represents a subacute or chronic ischemic injury. If high clinical suspicion for subacute injury, this may be confirmed with noncontrast enhanced magnetic resonance imaging of the brain. EVIDENCE OF ACUTE STROKE: NO. Chest X-Ray 08/29/19 16:05 IMPRESSION: NO ACUTE FINDINGS. Head MRI 08/29/19 16:30 IMPRESSION: Positive for acute or sub-acute infarction in the right inferior cerebellum in an area measuring approximately 3.5 cm in greatest dimension. EVIDENCE OF ACUTE STROKE: YES. RIGHT VERTEBROBASILAR. Carotid Doppler Study 08/30/19 00:00 IMPRESSION: There is a small amount soft plaque. No significant stenosis is seen on either side. Stroke Is this a Stroke Patient?: Yes Stroke Pt being discharged on Anti-thrombolytic therapy?: Yes Stroke Pt being discharged on Anti-coagulation therapy?: No Reason(s) for not prescribing Anti-coagulation therapy:: Not indicated Stroke Pt being discharged on Statins?: Yes Acute Heart Failure - Is this a Heart Failure Patient?: No
[2019-08-30 18:34] VITALS: BP 171/76
== END 2019-08-30 19:07 | disposition home or self-care (01) | DRG 66 ==
LOC: ER 13:10 → EH 16:40 → 3W 18:41 → OBSVTOIN 08-30 12:39
PROVIDERS: ADMIT Internal Medicine; ATTEND Internal Medicine
DX: I63.9 Cerebral infarction, unspecified (principal); I16.0 Hypertensive urgency; I10 Essential (primary) hypertension; R20.0 Anesthesia of skin; R26.89 Other abnormalities of gait and mobility; R13.10 Dysphagia, unspecified; F17.200 Nicotine dependence, unspecified, uncomplicated; E78.5 Hyperlipidemia, unspecified; E11.9 Type 2 diabetes mellitus without complications; Z79.82 Long term (current) use of aspirin; Z79.84 Long term (current) use of oral hypoglycemic drugs
CPT/HCPCS: 36415; 70450; 70551; 71045; 80053; 80061; 82962; 83036; 84443; 84484; 85025; 85610; 93005; 93010; 93880; 99285; G0378; J3490